=== PATIENT | male | born 1975 | race Caucasian/White ===

== ENCOUNTER 2020-03-21 14:58 | Emergency (ER) | payer MEDICARE ==
[~2020-03-21] VITALS: Wt 65.3 kg
[~2020-03-21 14:58] MED LIST: ULTRAM50 MG PO
[2020-03-21 18:01] LABS: BASO % 0.3 % (0.0-1.0); EOS # 0.1 10*3/uL (0.0-0.4); EOS % 0.5 % (1.0-4.0); HEMATOCRIT 40.5 % (42.0-52.0); LYMPH # 1.6 10*3/uL (1.3-4.4); LYMPH % 13.5 % (27.0-41.0); MEAN CELL VOLUME 84.2 fl (80.0-94.0); MEAN CORPUSCULAR HGB 28.3 pg (27.0-31.0); MEAN CORPUSCULAR HGB CONC 33.6 g/dl (33.0-37.0); MEAN PLATELET VOLUME 8.2 fl (9.6-12.3); MONO # 0.6 10*3/uL (0.1-1.0); NEUT # 9.4 10*3/uL (2.3-7.9); NEUT % 80.1 % (47.0-73.0); PLATELET COUNT AUTOMATED 343 10*3/uL (130-400); RED BLOOD COUNT 4.81 10*6/uL (4.50-5.90); RED CELL DISTRI WIDTH 12.7 % (0-14.5); WHITE BLOOD COUNT 11.7 10*3/uL (4.8-10.8)
[2020-03-21 18:20] LABS: ALBUMIN 4.4 gm/dl (3.1-4.5); ALKALINE PHOSPHATASE 97 U/L (45-117); BUN 7 mg/dl (7-24); CHLORIDE 105 mmol/L (98-107); CREATININE 0.75 mg/dL (0.70-1.30); POTASSIUM 4.2 mmol/L (3.5-5.1); SGOT/AST 9 IU/L (3-35); SGPT/ALT 21 U/L (12-78); SODIUM 137 mmol/L (136-145); TOTAL PROTEIN 8.1 gm/dL (6.4-8.2)
[2020-03-21 18:32] LABS: TROPONIN I < 0.015 ng/ml (<0.045)
[2020-03-21 18:43] LABS: BILIRUBIN Negative (Negative); BLOOD 1+ (Negative); CLARITY Clear (Clear); COLOR Yellow (Yellow); GLUCOSE Negative (Negative); KETONE Negative (Negative); LEUKO ESTERASE Negative (Negative); NITRITE Negative (Negative); PH 6.5 (4.5-8.0); UROBILINOGEN 0.2 E.U./dl (0.0-1.0)
[2020-03-21 18:57] LABS: BACTERIA TRACE; EPITHELIAL CELLS 0-2; WBC 0-2 wbc/hpf (0-5)
[2020-03-21] MEDS ORDERED: GOOD NEIGHBOR M25 M1 PO (20:41)
== END 2020-03-21 20:50 | disposition home or self-care (01) ==
LOC: ED 14:58
PROVIDERS: Nurse Practitioner Family
DX: R42 Dizziness and giddiness (principal); R20.0 Anesthesia of skin; R79.1 Abnormal coagulation profile

== ENCOUNTER 2020-03-30 16:26 | Emergency (ER) | payer MEDICARE ==
[~2020-03-30 16:26] MED LIST changes: +GOOD NEIGHBOR M25 M1 PO
== END 2020-03-30 18:00 | disposition left against medical advice (07) ==
LOC: ED 16:26
DX: R03.0 Elevated blood-pressure reading, without diagnosis of hypertension (principal); Z53.21 Procedure and treatment not carried out due to patient leaving prior to being seen by health care provider